=== PATIENT | male | born 1955 | race Caucasian/White ===

== ENCOUNTER 2017-04-11 00:41 | Observation (INO) | payer BC ==
[~2017-04-11] VITALS: Ht 185.4 cm; Wt 102.9 kg
[~2017-04-11 00:41] MED LIST: HYDUNK; LPTUNK; PRLSRUNK; ZVRUNK
[2017-04-11] MEDS ORDERED: ASPIRIN 324 MG CHEW PO STA (00:58)
[2017-04-11] MEDS ORDERED: NITROGLYCERIN 0.4 MG SL PER TAB CHARGE SL STA (00:58)
[2017-04-11 01:18] LABS: BASO % 0.1 %; BASO ABS # 0.01 K/uL (0-0.2); COMPLETE YES; EOS % 2.1 %; HEMATOCRIT 39.6 % (42-52); IG% 0.2 %; LYMPH % 34.1 %; MEAN CELL VOLUME 91.7 fL (80-100); MEAN CORPUSCULAR HEMOGLOBIN 31.3 pg (25-34); MEAN CORPUSCULAR HGB CONC 34.1 g/dl (32-36); MEAN PLATELET VOLUME 9.4 fL (7.4-10.4); MONO % 6.3 %; NEUT % 57.2 %; PLATELET COUNT 222 K/uL (130-400); RED BLOOD COUNT 4.32 M/uL (4.7-6.1); WHITE BLOOD COUNT 8.21 K/uL (4.8-10.8)
[2017-04-11] MEDS ORDERED: MELO15TA4 PO (01:23)
[2017-04-11] MEDS ORDERED: ASPI81TA28 PO (01:23)
[2017-04-11] MEDS ORDERED: LSNP/30 PO (01:23)
[2017-04-11] MEDS ORDERED: MULT-506 PO (01:23)
[2017-04-11] MEDS ORDERED: ROSU40TA PO (01:23)
[2017-04-11] MEDS ORDERED: COEN1CAP7 PO (01:23)
[2017-04-11] MEDS ORDERED: HYDR12.56 PO (01:23)
[2017-04-11] MEDS ORDERED: ACYC400T PO (01:23)
[2017-04-11] MEDS ORDERED: MoRPHine SULFATE 4 MG/ML 1 ML CARP\\VIAL IV STA ×2 (01:31→04:27)
[2017-04-11 01:36] LABS: ALT/SGPT 32 U/L (12-78); AST/SGOT 19 U/L (15-37); BLOOD UREA NITROGEN 23 mg/dl (7-18); BUN/CREATININE RATIO 22.6 (10-20); CALCIUM 8.9 mg/dl (8.5-10.1); CARBON DIOXIDE 28 mmol/L (21-32); CHLORIDE 105 mmol/L (98-107); GLUCOSE 91 mg/dl (70-99); POTASSIUM 3.4 mmol/L (3.5-5.1); SODIUM 141 mmol/L (136-145)
[2017-04-11 01:40] LABS: ALKALINE PHOSPHATASE 58 U/L (45-117); CKMB/CK RATIO 0.6 (0-3.0)
[2017-04-11 01:41] LABS: PARTIAL THROMBOPLASTIN RATIO 1.1; PROTHROMBIN TIME (PATIENT) 10.4 SECONDS (9.0-12.0)
[2017-04-11] MEDS ORDERED: MoRPHine SULFATE 2 MG/ML CARP IV PRN (03:00)
[2017-04-11] MEDS ORDERED: ACETAMINOPHEN 325 MG TAB PO PRN (03:00)
[2017-04-11] MEDS ORDERED: POLYETHYLENE (MIRALAX) 17 GM PACK PO PRN (03:00)
[2017-04-11] MEDS ORDERED: ONDANSETRON INJ 2 MG/ML 2 ML VIAL IV PRN (03:00)
[2017-04-11] MEDS ORDERED: NITROGLYCERIN 0.4 MG SL PER TAB CHARGE SL PRN (03:00)
[2017-04-11] MEDS ORDERED: IV FLUIDS COMPLETED PRN (03:30)
--- NOTE | 2017-04-11 04:41 | History and Physical ---
History & Physical Date & Time of Service: Apr 11, 2017 at 04:27 Chief Complaint: Chest Pain Primary Care Physician: Cash Barron M.D. 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 He states that when he bent forward he felt a non-radiating sharp pain but when he stood up he was fine. He then leaned down again and felt the pain come back on with no relief when he stood up and progressive worsening of the pain intensity as the evening progressed. He denies shortness of breath but states that it is painful to take a deep breath in. He denies any associated diaphoresis, palpitations, numbness or tingling in his hands--he did have some tingling in his L jaw for 10 seconds, and no nausea. He also denies any changes in his stools, vomiting, or UTI symptoms. He denies any rashes or skin lesions. In 2014, he was seen by Dr. Jarquin for evaluation of chest pain and tachycardia. He underwent a DSE on 07/06/2015 which revealed an EF 60-65%, Grade I DD, mild AoV sclerosis and no inducible ischemia. He has been doing well since that time and this pressure feels different to him than it did the last time. There is also significant TTP of the L anterior chest wall closer to the sternal border. Past Medical/Surgical History Medical Problems: (1) Chiari malformation Status: Chronic (2) Esophagitis Status: Chronic (3) HSV infection Status: Chronic (4) HTN (hypertension) Status: Chronic (5) Hyperlipidemia Status: Chronic (6) Osteoarthritis Status: Chronic Surgical Problems: (1) S/P knee surgery Status: Chronic (2) Status post herniorrhaphy Status: Chronic Family History Early CAD Social History Smoking Status: Never Smoker Smokeless Tobacco Use: No Alcohol Use: socially Drug Use: none Marital Status: Housing status: lives with significant other Occupational Status: retired Immunizations History of Influenza Vaccine: Yes Influenza Vaccine Date: May 12, 2015 History of Tetanus Vaccine?: Yes Tetanus Immunization Date: Jan 08, 2008 History of Pneumococcal: No History of Hepatitis B Vaccine: No Multi-Drug Resistant Organisms History of MDRO: No Allergies Coded Allergies: Penicillins (Verified Allergy, Severe, "LIPS & TONGUE SWELL", 04/11/17) Home Medications Scheduled Acyclovir (Acyclovir), 400 MG PO DAILY Aspirin (Aspirin Ec), 81 MG PO DAILY Coenzyme Q10 (Ubidecarenone) (Coq10), 200 MG PO DAILY Hydrochlorothiazide (Hctz), 12.5 MG PO DAILY Lisinopril (Zestril), 30 MG PO DAILY Meloxicam (Meloxicam), 15 MG PO DAILY Multivitamin (Multivitamin), 1 TAB PO DAILY Rosuvastatin Calcium (Crestor), 40 MG PO DAILY Review of Systems At least ten systems were reviewed and negative except as indicated in HPI. Physical Exam Vital Signs Date Time Temp Pulse Resp B/P (MAP) Pulse Ox O2 Delivery O2 Flow Rate FiO2 04/11/17 03:51 86 04/11/17 02:36 74 13 97 04/11/17 02:31 124/69 04/11/17 02:21 76 12 96 04/11/17 02:06 77 14 94 04/11/17 02:01 123/73 04/11/17 01:56 82 17 96 04/11/17 01:41 81 16 97 04/11/17 01:40 04/11/17 01:40 84 16 141/86 95 Room Air 04/11/17 01:31 127/83 04/11/17 01:26 77 98 04/11/17 01:20 131/82 04/11/17 01:11 87 22 95 Room Air 04/11/17 01:01 165/95 04/11/17 00:44 36.7 88 18 152/95 97 Room Air General Appearance: WD/WN, no apparent distress Head: normocephalic, atraumatic Eyes: normal inspection, PERRL, sclerae normal ENT: hearing grossly normal, pharynx normal Neck: no adenopathy, no JVD, trachea midline Respiratory/Chest: lungs clear, normal breath sounds, no respiratory distress, no accessory muscle use, + pertinent finding (significant chest wall tenderness to palpation on L anterior chest closer to the sternal border. 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, no motor/sensory deficits, alert, oriented x 3 Skin: normal color, warm/dry, no rash Diagnostics Laboratory Results 04/11/17 01:00 Red Blood Count 4.32, Mean Corpuscular Volume 91.7, Mean Corpuscular Hemoglobin 31.3, Mean Corpuscular Hemoglobin Concent 34.1, Mean Platelet Volume 9.4, Neutrophils (%) (Auto) 57.2, Lymphocytes (%) (Auto) 34.1, Monocytes (%) (Auto) 6.3, Eosinophils (%) (Auto) 2.1, Basophils (%) (Auto) 0.1, Neutrophils # (Auto) 4.69, Lymphocytes # (Auto) 2.80, Monocytes # (Auto) 0.52, Eosinophils # (Auto) 0.17, Basophils # (Auto) 0.01 04/11/17 01:00 Test 04/11/17 01:00 04/11/17 01:05 White Blood Count 8.21 K/uL (4.8-10.8) Red Blood Count 4.32 M/uL (4.7-6.1) Hemoglobin 13.5 g/dL (14.0-18.0) Hematocrit 39.6 % (42-52) Mean Corpuscular Volume 91.7 fL (80-100) Mean Corpuscular Hemoglobin 31.3 pg (25-34) Mean Corpuscular Hemoglobin Concent 34.1 g/dl (32-36) Platelet Count 222 K/uL (130-400) Mean Platelet Volume 9.4 fL (7.4-10.4) Neutrophils (%) (Auto) 57.2 % Lymphocytes (%) (Auto) 34.1 % Monocytes (%) (Auto) 6.3 % Eosinophils (%) (Auto) 2.1 % Basophils (%) (Auto) 0.1 % Neutrophils # (Auto) 4.69 K/uL (1.4-6.5) Lymphocytes # (Auto) 2.80 K/uL (1.2-3.4) Monocytes # (Auto) 0.52 K/uL (0.11-0.59) Eosinophils # (Auto) 0.17 K/uL (0-0.5) Basophils # (Auto) 0.01 K/uL (0-0.2) RDW Standard Deviation 44.7 fL (36.4-46.3) RDW Coefficient of Variation 13.4 % (11.5-14.5) Immature Granulocyte % (Auto) 0.2 % Immature Granulocyte # (Auto) 0.02 K/uL (0.00-0.02) Prothrombin Time 10.4 SECONDS (9.0-12.0) Prothromb Time International Ratio 1.0 (0.9-1.1) Activated Partial Thromboplast Time 27.4 SECONDS (21.0-31.0) Partial Thromboplastin Ratio 1.1 Anion Gap 8.0 mmol/L (3-11) Est Creatinine Clear Calc Drug Dose 100.5 ml/min Estimated GFR () 95.1 Estimated GFR (Non- 82.0 BUN/Creatinine Ratio 22.6 (10-20) Calcium Level 8.9 mg/dl (8.5-10.1) Total Bilirubin 0.3 mg/dl (0.2-1) Direct Bilirubin < 0.1 mg/dl (0-0.2) Aspartate Amino Transf (AST/SGOT) 19 U/L (15-37) Alanine Aminotransferase (ALT/SGPT) 32 U/L (12-78) Alkaline Phosphatase 58 U/L (45-117) Total Creatine Kinase 142 U/L (39-308) Creatine Kinase MB 0.9 ng/ml (0.5-3.6) Creatine Kinase MB Ratio 0.6 (0-3.0) Total Protein 7.4 gm/dl (6.4-8.2) Albumin 3.8 gm/dl (3.4-5.0) Bedside Troponin I < 0.030 ng/ml (0-0.045) Results Past 24 Hours Test 04/11/17 01:00 04/11/17 01:05 Range/Units White Blood Count 8.21 4.8-10.8 K/uL Red Blood Count 4.32 4.7-6.1 M/uL Hemoglobin 13.5 14.0-18.0 g/dL Hematocrit 39.6 42-52 % Mean Corpuscular Volume 91.7 80-100 fL Mean Corpuscular Hemoglobin 31.3 25-34 pg Mean Corpuscular Hemoglobin Concent 34.1 32-36 g/dl Platelet Count 222 130-400 K/uL Mean Platelet Volume 9.4 7.4-10.4 fL Neutrophils (%) (Auto) 57.2 % Lymphocytes (%) (Auto) 34.1 % Monocytes (%) (Auto) 6.3 % Eosinophils (%) (Auto) 2.1 % Basophils (%) (Auto) 0.1 % Neutrophils # (Auto) 4.69 1.4-6.5 K/uL Lymphocytes # (Auto) 2.80 1.2-3.4 K/uL Monocytes # (Auto) 0.52 0.11-0.59 K/uL Eosinophils # (Auto) 0.17 0-0.5 K/uL Basophils # (Auto) 0.01 0-0.2 K/uL RDW Standard Deviation 44.7 36.4-46.3 fL RDW Coefficient of Variation 13.4 11.5-14.5 % Immature Granulocyte % (Auto) 0.2 % Immature Granulocyte # (Auto) 0.02 0.00-0.02 K/uL Prothrombin Time 10.4 9.0-12.0 SECONDS Prothromb Time International Ratio 1.0 0.9-1.1 Activated Partial Thromboplast Time 27.4 21.0-31.0 SECONDS Partial Thromboplastin Ratio 1.1 Sodium Level 141 136-145 mmol/L Potassium Level 3.4 3.5-5.1 mmol/L Chloride Level 105 98-107 mmol/L Carbon Dioxide Level 28 21-32 mmol/L Anion Gap 8.0 3-11 mmol/L Blood Urea Nitrogen 23 7-18 mg/dl Creatinine 1.00 0.60-1.40 mg/dl Est Creatinine Clear Calc Drug Dose 100.5 ml/min Estimated GFR () 95.1 Estimated GFR (Non- 82.0 BUN/Creatinine Ratio 22.6 10-20 Random Glucose 91 70-99 mg/dl Calcium Level 8.9 8.5-10.1 mg/dl Total Bilirubin 0.3 0.2-1 mg/dl Direct Bilirubin < 0.1 0-0.2 mg/dl Aspartate Amino Transf (AST/SGOT) 19 15-37 U/L Alanine Aminotransferase (ALT/SGPT) 32 12-78 U/L Alkaline Phosphatase 58 45-117 U/L Total Creatine Kinase 142 39-308 U/L Creatine Kinase MB 0.9 0.5-3.6 ng/ml Creatine Kinase MB Ratio 0.6 0-3.0 Total Protein 7.4 6.4-8.2 gm/dl Albumin 3.8 3.4-5.0 gm/dl Bedside Troponin I < 0.030 0-0.045 ng/ml Diagnostic Radiology wet read is normal CXR normal Normal EKG, No change from prior EKG Impression Assessment and Plan 61 yo M without CAD, who is a nonsmoker presents to the ER with chest pain 1. Atypical chest pain-poss etiologies include but are not limited to ACS, MSK pain (costochondritis), PE, indigestion/esophagitis. Risk factors for CAD include HTN, HLP on Crestor and early family h/o CAD. He is an otherwise healthy person who doesn't get chest pain symptoms with heavy physical exertion normally. He underwent a DSE in 2014 which was normal. He was given ASA 325, Nitro x 1 in the ER was unsuccessful in touching the pain. He then received morphine 4mg IV which helped somewhat but was still having 6/10 chest pain 1-2 hours later and was given additional morphine. Trending serial EKGs overnight, monitor on telemetry and consult Cardiology for evaluation in the morning. 2. HTN-controlled on home regimen 3. HLP-cont Crestor. Checking lipids in am. DVT proph-Lovenox Full Code Dispo-likely to home in am. Ena [facility] Telemetry Resuscitation Status FULL RESUSCITATION VTE Prophylaxis VTE Risk Assessment Done? Y/N: Yes Risk Level: Moderate Given or contraindicated: Enoxaparin (Lovenox)SQ
[2017-04-11] MEDS ORDERED: POTASSIUM CHLORIDE 10 MEQ TABCR PO STA (05:01)
[2017-04-11 05:16] VITALS: BP 132/79; PULSE 77; TEMP 36.4; O2SAT 96; Ht 185.4 cm; Wt 102.9 kg
--- NOTE | 2017-04-11 06:58 | EMERGENCY ROOM VISIT NOTE ---
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 Little bit of a pressure, worse and sharp with inspiration. Minor tingling in left face, resolved upon arrival. Denies nausea, dyspnea (but hard to take a deep breath). No recent illness. History of Present Illness The patient is a 61 year old male who presents to the Emergency Room with complaints of chest pain. The patient reports that the pain started approximately 4 hours ago. 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 He reports the pain is to the left side of the center of the chest. He states the pain has been constant and rates the discomfort a 6/10. He reports the pain sometimes increases with deep breath and with lying down. He denies any cardiac history, but does report a history of hypertension and hyperlipidemia. He reports a positive family history of cardiac disease in his father, who had an VT at age 49. He reports he had a stress test performed by Dr. Jarquin due to tachycardia, but this resolved. He denies any radiation of the pain. He denies any nausea/vomiting. He denies any lightheadedness or palpitations. Review of Systems A complete 10 point review of systems was reviewed with the patient with pertinent positives and negatives as per history of present illness. All else were negative. Past Medical/Surgical History Medical Problems: (1) Chest pain (2) Chiari malformation (3) Esophagitis (4) HSV infection (5) HTN (hypertension) (6) Hyperlipidemia (7) Osteoarthritis Surgical Problems: (1) S/P knee surgery (2) Status post herniorrhaphy Family History Early CAD Social History Smoking Status: Never Smoker Smokeless Tobacco Use: No Drug Use: none Marital Status: Occupation Status: retired Current/Historical Medications Scheduled Acyclovir (Acyclovir), 400 MG PO DAILY Aspirin (Aspirin Ec), 81 MG PO DAILY Coenzyme Q10 (Ubidecarenone) (Coq10), 200 MG PO DAILY Hydrochlorothiazide (Hctz), 12.5 MG PO DAILY Lisinopril (Zestril), 30 MG PO DAILY Meloxicam (Meloxicam), 15 MG PO DAILY Multivitamin (Multivitamin), 1 TAB PO DAILY Rosuvastatin Calcium (Crestor), 40 MG PO DAILY Physical Exam Vital Signs Date Time Temp Pulse Resp B/P (MAP) Pulse Ox O2 Delivery O2 Flow Rate FiO2 04/11/17 02:36 74 13 97 04/11/17 02:31 124/69 04/11/17 02:21 76 12 96 04/11/17 02:06 77 14 94 04/11/17 02:01 123/73 04/11/17 01:56 82 17 96 04/11/17 01:41 81 16 97 04/11/17 01:40 04/11/17 01:40 84 16 141/86 95 Room Air 04/11/17 01:31 127/83 04/11/17 01:26 77 98 04/11/17 01:20 131/82 04/11/17 01:11 87 22 95 Room Air 04/11/17 01:01 165/95 04/11/17 00:44 36.7 88 18 152/95 97 Room Air Physical Exam VITALS: Vitals are noted on the nurse's note and reviewed by myself. Vital signs stable. GENERAL: This is a 61-year-old male, in no acute distress, nondiaphoretic, well- developed well-nourished. HEENT: Normocephalic. PERRLA. Mucous membranes moist. HEART: Regular rate and rhythm without murmurs gallops or rubs. LUNGS: Clear to auscultation bilaterally without wheezes, rales or rhonchi. No retractions or accessory muscle use. MUSCULOSKELETAL: Pain is minimally reducible to the lower left sternal border. NEURO: Patient was alert and oriented to person place and time. Medical Decision & Procedures ER Provider Diagnostic Interpretation: CHEST 1 VIEW: No acute cardiopulmonary abnormality. Laboratory Results 04/11/17 01:00 Red Blood Count 4.32, Mean Corpuscular Volume 91.7, Mean Corpuscular Hemoglobin 31.3, Mean Corpuscular Hemoglobin Concent 34.1, Mean Platelet Volume 9.4, Neutrophils (%) (Auto) 57.2, Lymphocytes (%) (Auto) 34.1, Monocytes (%) (Auto) 6.3, Eosinophils (%) (Auto) 2.1, Basophils (%) (Auto) 0.1, Neutrophils # (Auto) 4.69, Lymphocytes # (Auto) 2.80, Monocytes # (Auto) 0.52, Eosinophils # (Auto) 0.17, Basophils # (Auto) 0.01 04/11/17 01:00 Test 04/11/17 01:00 04/11/17 01:05 White Blood Count 8.21 K/uL (4.8-10.8) Red Blood Count 4.32 M/uL (4.7-6.1) Hemoglobin 13.5 g/dL (14.0-18.0) Hematocrit 39.6 % (42-52) Mean Corpuscular Volume 91.7 fL (80-100) Mean Corpuscular Hemoglobin 31.3 pg (25-34) Mean Corpuscular Hemoglobin Concent 34.1 g/dl (32-36) Platelet Count 222 K/uL (130-400) Mean Platelet Volume 9.4 fL (7.4-10.4) Neutrophils (%) (Auto) 57.2 % Lymphocytes (%) (Auto) 34.1 % Monocytes (%) (Auto) 6.3 % Eosinophils (%) (Auto) 2.1 % Basophils (%) (Auto) 0.1 % Neutrophils # (Auto) 4.69 K/uL (1.4-6.5) Lymphocytes # (Auto) 2.80 K/uL (1.2-3.4) Monocytes # (Auto) 0.52 K/uL (0.11-0.59) Eosinophils # (Auto) 0.17 K/uL (0-0.5) Basophils # (Auto) 0.01 K/uL (0-0.2) RDW Standard Deviation 44.7 fL (36.4-46.3) RDW Coefficient of Variation 13.4 % (11.5-14.5) Immature Granulocyte % (Auto) 0.2 % Immature Granulocyte # (Auto) 0.02 K/uL (0.00-0.02) Prothrombin Time 10.4 SECONDS (9.0-12.0) Prothromb Time International Ratio 1.0 (0.9-1.1) Activated Partial Thromboplast Time 27.4 SECONDS (21.0-31.0) Partial Thromboplastin Ratio 1.1 Anion Gap 8.0 mmol/L (3-11) Est Creatinine Clear Calc Drug Dose 100.5 ml/min Estimated GFR () 95.1 Estimated GFR (Non- 82.0 BUN/Creatinine Ratio 22.6 (10-20) Calcium Level 8.9 mg/dl (8.5-10.1) Total Bilirubin 0.3 mg/dl (0.2-1) Direct Bilirubin < 0.1 mg/dl (0-0.2) Aspartate Amino Transf (AST/SGOT) 19 U/L (15-37) Alanine Aminotransferase (ALT/SGPT) 32 U/L (12-78) Alkaline Phosphatase 58 U/L (45-117) Total Protein 7.4 gm/dl (6.4-8.2) Albumin 3.8 gm/dl (3.4-5.0) Bedside Troponin I < 0.030 ng/ml (0-0.045) Medications Administered Medications (Trade) Dose Ordered Sig/Michelle Route Start Time Stop Time Status Last Admin Dose Admin Nitroglycerin (Nitrostat Tab) 0.4 mg NOW STAT SL 04/11/17 00:58 04/11/17 01:01 DC 04/11/17 01:08 0.4 MG Aspirin (Aspirin Chew) 324 mg NOW STAT PO 04/11/17 00:58 04/11/17 01:01 DC 04/11/17 01:07 324 MG Morphine Sulfate (MoRPHine SULFATE INJ) 4 mg NOW STAT IV 04/11/17 01:31 04/11/17 01:32 DC 04/11/17 01:36 4 MG Morphine Sulfate (MoRPHine SULFATE INJ) 2 mg Q30M PRN IV 04/11/17 03:00 04/25/17 02:59 04/11/17 04:29 2 MG ECG Rate (beats per minute): 85 Rhythm: normal sinus Findings: RBBB, T-wave inversion (lead III) Comparison ECG Date: T wave inversion in lead III new from 2014; otherwise unchanged ED Course The patient was evaluated as above. Labs were drawn and IV access was obtained. Patient was reevaluated and findings were discussed. The patient is agreeable to admission. Case was discussed with the [facility] hospitalist, Dr. Weaver. They agreed to evaluate the patient for admission. Medical Decision Differential diagnosis includes acute coronary syndrome, pulmonary embolism, pneumothorax, pericarditis, myocarditis, endocarditis, anxiety, musculoskeletal pain, GERD, costochondritis, pneumonia, among others. The patient is a 61-year-old male who presents today complaining of left sided chest pain. Labs were unremarkable. Initial troponin was not elevated. An EKG was performed and reveals a right bundle-branch block. A recent EKG was obtained through [employer] system. It appears that the patient has a new T- wave inversion of lead III. Patient has a history of hypertension and hyperlipidemia and has a father with VT at age 49. HEART score was calculated and the patient does have a moderate risk of major acute cardiac event. Although the history is not overtly suspicious for cardiac event, I do feel the patient warrants admission/observation for further workup. The patient was agreeable to this. [facility] The patient's case was reviewed with Dr. Lara, ED attending physician, who agreed with my assessment and treatment plan. Medication Reconcilliation Current Medication List: was personally reviewed by me Blood Pressure Screening Patient's blood pressure: Elevated blood pressure Blood pressure disposition: Elevated BP felt to be situational Impression Primary Impression: Left sided chest pain Departure Information Dispostion Still a Patient Condition GOOD Referrals Cash Barron M.D. (PCP) Forms Call Back Authorization, HOME CARE DOCUMENTATION FORM, IMPORTANT VISIT INFORMATION Patient Instructions [facility]
--- NOTE | 2017-04-11 07:23 | DIAGNOSTIC IMAGING REPORT ---
SINGLE VIEW CHEST CLINICAL HISTORY: Atypical chest pain. FINDINGS: An AP, portable, upright chest radiograph is obtained. No prior studies are available for comparison at the time of dictation. The examination is degraded by portable technique and patient rotation. The cardiomediastinal silhouette is unremarkable. There is atherosclerotic calcification of the thoracic aorta. There is mild elevation of right hemidiaphragm. Bibasilar atelectasis is observed. No airspace consolidation is seen typical for pneumonia and there is no large pleural effusion. No pneumothorax is seen. The bony thorax is grossly intact. IMPRESSION: No acute cardiopulmonary abnormality. Electronically signed by: Caio Goldman M.D. 04/11/2017 7:22 AM Dictated Date/Time: 04/11/2017 7:21 AM
[2017-04-11 07:34] LABS: CHOLESTEROL 154 mg/dl (0-200); CHOLESTEROL/HDL RATIO 3.9; CKMB/CK RATIO 1.1 (0-3.0); HDL CHOLESTEROL 39 mg/dl; LDL CHOLESTEROL CALCULATED 88 mg/dl; TRIGLYCERIDES 137 mg/dl (0-150); VERY LOW DENSITY LIPOPROT CALC 27 mg/dl
[2017-04-11 07:38] VITALS: BP 143/82; PULSE 73; TEMP 36.4; O2SAT 98
[2017-04-11] MEDS ORDERED: ASPIRIN 81 MG ECTAB PO SCH (09:00)
[2017-04-11] MEDS ORDERED: LIDODERM (LIDOCAINE) PATCH 5% TD SCH (09:00)
[2017-04-11] MEDS ORDERED: ENOXAPARIN 40 MG/0.4 ML SYR SC SCH (09:00)
--- NOTE | 2017-04-11 10:06 | CARDIOLOGY CONSULTATION ---
DATE OF CONSULTATION: 04/11/2017 CONSULTATION REQUESTED BY: Dr. Weaver. REASON FOR CONSULTATION: Chest pain. HISTORY OF PRESENT ILLNESS: Mr. Prasad is a very pleasant 61-year-old gentleman who normally follows with myself as an outpatient for his history of hypertension and cardiac chest pain. He presented to [facility] early in the a.m. of 04/11/2017 with a complaint of chest pain. 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 Again, the pain was sharp and stabbing in nature along his left sternal border. It was worse with movement of his arm or deep inhalation. The pain slowly subsided; however, then when he went home and was relaxing, the pain returned, again sharp and stabbing in nature, worse with motion or deep inhalation. He then tried to lie down to go to sleep; however, the pain persisted, he was unable to rest and he came in the Emergency Department. With this, he denied any associated symptoms, specifically denied any associated diaphoresis, shortness of breath, nausea, palpitations, lightheadedness, dizziness or syncope. He was seen in the Emergency Department. His EKG was unremarkable. First set of cardiac enzymes was unremarkable. He was given narcotics for pain control which did help with the pain somewhat. He was admitted to telemetry. The patient was seen and examined with his at the bedside. Again, he states that the pain remains present, is very tender to the touch and worse with left arm movement. PAST SURGICAL HISTORY: 1. Multiple colonoscopies. 2. Knee arthroscopies. 3. Hernia repair. MEDICAL ILLNESSES: 1. History of noncardiac chest pain. 2. Hypertension. 3. Dyslipidemia. 4. Esophagitis. 5. Chiari network. 6. History of myalgias of unclear etiology. FAMILY HISTORY: Remarkable for father who developed coronary artery disease later in life. SOCIAL HISTORY: Denies any alcohol, tobacco or recreational drug use. He is and lives at home with his . He is retired from [employer]. He continues to be active, giving softball lessons. He does not exercise on a regular basis, but again he is active. REVIEW OF SYSTEMS: As per HPI. All other review of systems reviewed and negative at this time. ALLERGIES: PENICILLIN. MEDICATIONS AN OUTPATIENT: 1. Aspirin 81 mg daily. 2. Crestor 40 mg daily. 3. Hydrochlorothiazide 12.5 mg daily. 4. Meloxicam as needed. 5. Coenzyme Q10 200 mg daily. PHYSICAL EXAMINATION: VITAL SIGNS: Temperature 36.4, pulse 73, respiratory rate 12, blood pressure 143/82. GENERAL: Awake, alert, oriented x3, in no acute distress. HEENT: Normocephalic, atraumatic. Pupils equal, round and reactive to light and accommodation. Extraocular muscles intact. Anicteric sclerae. Moist mucous membranes. NECK: No JVD, no bruit. CARDIOVASCULAR: Regular. Positive S4. Normal S1 and S2. No S3. No murmurs or rubs. PULMONARY: Clear to auscultation bilaterally. No rales, rhonchi or wheezing. ABDOMEN: Bowel sounds x4, soft. No rebound, guarding, tenderness. No organomegaly. EXTREMITIES: No clubbing, cyanosis or edema. +2 pedal pulses bilaterally. SKIN: Warm and dry. MUSCULOSKELETAL: Left 5th rib is stuck in exhalation, very tender to palpation. TEST RESULTS: A 12-lead EKG performed in the Emergency Department independently reviewed at this time shows normal sinus rhythm at 85 beats per minute with right bundle-branch block. No signs of ischemia. No significant change compared to previous study. LABORATORY STUDIES OF SIGNIFICANCE: Troponin negative x2. CPK of 142, followed by 110. Total cholesterol of 154, LDL 88, HDL 39, triglycerides 137. IMPRESSION: Somatic dysfunction with left 5th rib stuck in exhalation. RECOMMENDATIONS: It is my pleasure to see Mr. Prasad in consultation today. The patient and his were counseled that his left 5th rib is stuck in exhalation. We did some stretching of his left pectoral with significant improvement of his discomfort. I then attempted muscle energy via the pump handle technique to the 5th rib with significant improvement of his discomfort. So at this point, we will place him on a lidocaine patch at the spot. I am continuing stretching exercises. I will ask physical therapy to evaluate him and aid him in his stretching and strengthening of his pectoris, but no further cardiac testing is necessary at this time. It is okay to discharge the patient to home from a cardiac standpoint.
[2017-04-11] MEDS ORDERED: KETOROLAC TROMETHAMINE 10 MG TAB PO PRN (11:15)
[2017-04-11] MEDS ORDERED: IBUP-1427 PO (11:16)
--- NOTE | 2017-04-11 11:24 | Discharge Instructions ---
Discharge Instructions Date of Service Apr 11, 2017. Admission Reason for Admission: Chest Pain Discharge Discharge Diagnosis / Problem: CHEST PAIN /MUSKULUSKELETAL PAIN Discharge Goals Goal(s): Decrease discomfort, Improve disease control, Therapeutic intervention Activity Recommendations Activity Limitations: resume your previous activity . Instructions / Follow-Up Instructions / Follow-Up HOSPITAL FOLLOW UP : 04/17/2017 3:[address] Cash Barron MD [facility] Current Hospital Diet Patient's current hospital diet: AHA Diet (Heart Healthy) Discharge Diet Recommended Diet: AHA Diet (Heart Healthy) Pending Studies Studies pending at discharge: no Laboratory Results Lipid Panel Test 04/11/17 06:58 Range/Units Triglycerides Level 137 0-150 mg/dl Cholesterol Level 154 0-200 mg/dl HDL Cholesterol 39 mg/dl Cholesterol/HDL Ratio 3.9 LDL Cholesterol, Calculated 88 mg/dl Medical Emergencies . Who to Call and When: Medical Emergencies: If at any time you feel your situation is an emergency, please call 911 immediately. . Non-Emergent Contact Non-Emergency issues call your: Primary Care Provider . . "Provider Documentation" section prepared by Macie Viera. . VTE Core Measure Inpt VTE Proph given/why not?: Enoxaparin (Lovenox)SQ
[2017-04-11 12:14] VITALS: BP 126/80; PULSE 74; TEMP 36.6; O2SAT 98
[2017-04-11 12:43] LABS: CKMB/CK RATIO 0.9 (0-3.0)
[2017-04-11 14:38] VITALS: BP 126/80; PULSE 74; TEMP 36.6; O2SAT 98
--- NOTE | 2017-04-11 18:05 | Discharge Summary ---
Discharge Summary Date of Service Apr 11, 2017. Discharge Summary Admission Date: Apr 11, 2017 at 03:01 Discharge Date: Apr 11, 2017 Discharge Disposition: Home Principal Diagnosis: CHEST PAIN /MUSCULOSKELETAL PAIN Consultations: [facility] Medication Reconciliation New Medications: Ibuprofen Tab (Motrin) 600 Mg Tab 600 MG PO Q6H PRN for Pain, #30 TAB take with full stomach Continued Medications: Acyclovir (Acyclovir) 400 Mg Tab 400 MG PO DAILY for 90 Days, #90 TAB 3 Refills Aspirin (Aspirin Ec) 81 Mg Tab 81 MG PO DAILY Coenzyme Q10 (Ubidecarenone) (Coq10) 200 Mg Cap 200 MG PO DAILY Hydrochlorothiazide (Hctz) 12.5 Mg Cap 12.5 MG PO DAILY, TAB Lisinopril (Zestril) 30 Mg Tab 30 MG PO DAILY, TAB Meloxicam (Meloxicam) 15 Mg Tab 15 MG PO DAILY Multivitamin (Multivitamin) Tab 1 TAB PO DAILY, TAB Rosuvastatin Calcium (Crestor) 40 Mg Tab 40 MG PO DAILY, TAB Admission Information HPI (per Admitting provider): 61 yo M non-smoker presents to the ER with chest pain 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 He states that when he bent forward he felt a non-radiating sharp pain but when he stood up he was fine. He then leaned down again and felt the pain come back on with no relief when he stood up and progressive worsening of the pain intensity as the evening progressed. He denies shortness of breath but states that it is painful to take a deep breath in. He denies any associated diaphoresis, palpitations, numbness or tingling in his hands--he did have some tingling in his L jaw for 10 seconds, and no nausea. He also denies any changes in his stools, vomiting, or UTI symptoms. He denies any rashes or skin lesions. In 2014, he was seen by Dr. Jarquin for evaluation of chest pain and tachycardia. He underwent a DSE on 07/06/2015 which revealed an EF 60-65%, Grade I DD, mild AoV sclerosis and no inducible ischemia. He has been doing well since that time and this pressure feels different to him than it did the last time. There is also significant TTP of the L anterior chest wall closer to the sternal border. Physical Exam (per Admitting): General Appearance: WD/WN, no apparent distress Head: normocephalic, atraumatic Eyes: normal inspection, PERRL, sclerae normal ENT: hearing grossly normal, pharynx normal Neck: no adenopathy, no JVD, trachea midline Respiratory/Chest: lungs clear, normal breath sounds, no respiratory distress, no accessory muscle use, + pertinent finding (significant chest wall tenderness to palpation on L anterior chest closer to the sternal border. 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, no motor/sensory deficits, alert , oriented x 3 Skin: normal color, warm/dry, no rash Hospital Course no complain of chest heaviness or SOB has mild reproducible cheat wall tenderness with bending and movement evaluated by Cardiology this AM musculoskeletal pain , no further cardiac work up needed cont PRN NSAID"s , out pt PT P/E: GEN no sign of distress HEENT sclera non icteric HT regular s1/s2 LUNGS CTA ABDOMEN soft, non tender EXT no lower ext edema NEURO : AAO x3, no focal deficit A/P : CHEST PAIN : No evidence of ACS reproducible chest wall pain due to musculoskeletal pain appreciate cardiology eval no further cardiac work up needed stable to be discharged home pt can take PRN Mortin for pain PT as out pt for pectoral muscle strengthening HTN : BP stable cont out pt meds HYPERLIPIDEMIA : Cont on Statin Fasting lipid panel LDL 88 ( with in goal range of < 100 ) FULL CODE DISPOSITION : stable to be discharged home today Discharge Instructions Discharge Instructions Date of Service Apr 11, 2017. Admission Reason for Admission: Chest Pain Discharge Discharge Diagnosis / Problem: CHEST PAIN /MUSCULOSKELETAL PAIN Discharge Goals Goal(s): Decrease discomfort, Improve disease control, Therapeutic intervention Activity Recommendations Activity Limitations: resume your previous activity . Instructions / Follow-Up Instructions / Follow-Up HOSPITAL FOLLOW UP : 04/17/2017 3:[address] Cash Barron MD [facility] Current Hospital Diet Patient's current hospital diet: AHA Diet (Heart Healthy) Discharge Diet Recommended Diet: AHA Diet (Heart Healthy) Pending Studies Studies pending at discharge: no Laboratory Results Lipid Panel Test 04/11/17 06:58 Range/Units Triglycerides Level 137 0-150 mg/dl Cholesterol Level 154 0-200 mg/dl HDL Cholesterol 39 mg/dl Cholesterol/HDL Ratio 3.9 LDL Cholesterol, Calculated 88 mg/dl Medical Emergencies . Who to Call and When: Medical Emergencies: If at any time you feel your situation is an emergency, please call 911 immediately. . Non-Emergent Contact Non-Emergency issues call your: Primary Care Provider . . "Provider Documentation" section prepared by Macie Viera. . VTE Core Measure Inpt VTE Proph given/why not?: Enoxaparin (Lovenox)SQ
== END 2017-04-11 14:50 | disposition home or self-care (01) ==
LOC: C.EDB 00:42 → C.2T 03:01 → ENRESERV 03:25
PROVIDERS: ADMIT Hospitalist; ATTEND Hospitalist
DX: R07.9 Chest pain, unspecified (principal); I10 Essential (primary) hypertension; E78.5 Hyperlipidemia, unspecified; G93.5 Compression of brain; Z82.49 Family history of ischemic heart disease and other diseases of the circulatory system; Z79.82 Long term (current) use of aspirin; Z79.899 Other long term (current) drug therapy